=== PATIENT | female | born 1990 | race African-American/Black ===

== ENCOUNTER 2016-12-22 11:54 | Emergency (ER) | payer BC ==
[2016-12-22 12:45] LABS: Bilirubin Negative (Negative); Blood, Urine Negative (Negative); Glucose, Urine (Dipstick) Negative (Negative); Ketone, Urine Negative (Negative); Nitrite Negative (Negative); Protein, Urine (Dipstick) Negative (Neg-Trace)
[2016-12-22 12:48] LABS: Bacteria/HPF 1+ HPF (None Seen); Hyaline Casts/LPF 0-3 HYALINE CAST LPF (0-3 Hyaline); RBC/HPF 0-3 HPF (0-3)
== END 2016-12-22 13:30 | disposition home or self-care (01) ==
LOC: ERS 11:54
DX: R11.2 Nausea with vomiting, unspecified (principal)
CPT/HCPCS: 81003; 81015; 81025; 99284

== ENCOUNTER 2017-06-14 07:54 | Emergency (ER) | payer BC ==
[2017-06-14 08:49] LABS: Bilirubin Negative (Negative); Blood, Urine Negative (Negative); Clarity CLOUDY (Clear); Glucose, Urine (Dipstick) Negative (Negative); Leukocyte Small (Negative); Nitrite Positive (Negative); Protein, Urine (Dipstick) Negative (Neg-Trace)
[2017-06-14 08:56] LABS: Bacteria/HPF 1+ HPF (None Seen); Hyaline Casts/LPF 0-3 HYALINE CAST LPF (0-3 Hyaline); Pathc Cast-AUWi Flag 0.29 (0-2.49); RBC/HPF 0-3 HPF (0-3)
[2017-06-14 08:59] LABS: #Lymphocytes 1.5 thou/uL (1.20-3.40); #Monocytes 0.3 thou/uL (0.11-0.59); #Neutrophils 4.4 thou/uL (1.40-6.50); %Basophils 0.4 % (0.0-1.0); %Eosinophils 0.6 % (0.0-10.0); %Lymphocytes 24.1 % (21.0-51.0); %Neutrophils 69.9 % (42.0-75.0); Hemoglobin 11.5 g/dL (12.0-16.0); Mean Corpuscular HGB CONC 33.4 g/dL (32.0-36.0); Mean Corpuscular Hemoglobin 27.2 pg (27.0-31.0); Mean Corpuscular Volume 81.5 fl (81.0-99.0); Platelet Count 229 thou/uL (130-400); RBC Distribution Width 12.9 % (11.5-14.5); Red Blood Cell (RBC) Count 4.24 mill/uL (4.20-5.40); White Blood Cell (WBC) Count 6.2 thou/uL (4.8-10.8)
[2017-06-14 09:00] LABS: BHCG - Serum POSITIVE (NEGATIVE); Pregs Control Bar Appear? YES (CONTROL BAR)
[2017-06-14 09:01] LABS: Pregs Control Background? CLEAR/WHITE (CLR/WHITE)
[2017-06-14 09:17] LABS: ALT (SGPT) 12 U/L (8-55); AST (SGOT) 10 U/L (5-34); Albumin 3.5 g/dL (3.5-5.0); Alkaline Phosphatase 50 U/L (40-150); Anion Gap 11 mmol/L (10-20); BUN (Urea Nitrogen) 4 mg/dL (7.0-18.7); Bilirubin, Total 0.3 mg/dL (0.2-1.2); Calc. Creatinine Clearance 0 mL/min (70-130); Calcium 8.9 mg/dL (7.8-10.44); Carbon Dioxide 22 mmol/L (22-29); Chloride 106 mmol/L (98-107); Estimated GFR-MDRD Greater than 90; Globulin 2.8 g/dL (2.4-3.5); Glucose 77 mg/dL (70-105); Potassium 3.6 mmol/L (3.5-5.1); Protein, Total 6.3 g/dL (6.0-8.3); Sodium 135 mmol/L (136-145)
== END 2017-06-14 11:57 | disposition home or self-care (01) ==
LOC: ERS 07:54
DX: O23.42 Unspecified infection of urinary tract in pregnancy, second trimester (principal); Z3A.18 18 weeks gestation of pregnancy
CPT/HCPCS: 36415; 80053; 81003; 81015; 84702; 84703; 85025; 99284

== ENCOUNTER 2017-08-24 09:36 | Day surgery (SDC) | payer BC, OTHER ==
[2017-08-24 10:26] VITALS: BMI 39.9
[2017-08-24 10:34] VITALS: BP 118/61; TEMP 97.5
--- NOTE | 2017-08-24 11:53 | PRG ---
DATE OF SERVICE: 08/24/2017 PRIMARY DRAFTER (CAD) ELECTRONIC: [facility]. CHIEF COMPLAINT: Abdominal pain. HISTORY OF PRESENT ILLNESS: The patient is a 27-year-old G5, P3 female with an intrauterine pregnanc y at 28 weeks and 4 days, who is presenting to Labor and Delivery today from work with onset of sharp right lower abdominal pains. She reports that the pain has been present for about a day now and is much worse with movement and activity, getting out of bed. She works at [employer] on her feet for 8 hours and just was hurting too much to continue working. The patient denies uterine contractio ns. She denies vaginal bleeding. She denies urinary urgency or frequency. She denies any fall. Sh e denies headache, chest pain, shortness of breath, nausea, vomiting, diarrhea, constipation. She do es report that she has been itching in her lower abdomen. Denies vaginal bleeding, leakage of fluid, urinary urgency or frequency. PAST MEDICAL HISTORY: Anemia. PAST SURGICAL HISTORY: D and C. OBSTETRIC HISTORY: She has had 3 term deliveries and 1 missed first trimester loss miscarriage. ALLERGIES: No known drug allergies. MEDICATIONS: vitamins. OB LABS: Blood type is O positive, antibody screen is negative. HIV nonreactive in the first trimes ter. Hepatitis B surface antigen is negative. She is rubella immune. GC chlamydia were negative. REVIEW OF SYSTEMS: Per HPI. PHYSICAL EXAMINATION: VITAL SIGNS: Blood pressure 123/62, heart rate of 81, respiratory rate 16, satting 97%-98% on room a ir, temperature 97.5. GENERAL: She appears to be in no acute distress. She is alert and oriented, cooperative and pleasan t to interact with. HEENT: Normocephalic, atraumatic. CHEST: Clear to auscultation bilaterally. CARDIOVASCULAR: Heart has a regular rate and rhythm. ABDOMEN: Soft, nontender, gravid and obese. She does have an irregular bordered large macular lesio n filling most of underneath her pannus with irregular borders consistent with a fungal infection. T his is the site that she has itching. EXTREMITIES: Nontender, nonedematous. GENITOURINARY: Has been deferred. On abdominal exam, patient does have tenderness along her right i nguinal and abdominal region with deviation of the uterus to the left, reproducing the pain that she has been experiencing. heart tracing performed for abdominal pain baseline is noted to be in the 140s with moderate lo ng-term variability. There is a single variable deceleration early in the strip that spontaneously r ecovered with no reproduction before or after. The duration of the tracing is about 45 minutes. ASSESSMENT AND PLAN: The patient is a 27-year-old female with an intrauterine at 28 weeks with musculoskeletal pain consistent with round ligament pain. She also has a fungal infection under her pannus where things have been remaining moist. Fetus is reassuring for gestational age. The fabiano lockett has been given reassurance counseled to take two Tylenol 3 times a day and have recommended a b kaila band to the cyst while working for comfort. We have also counseled for her to get an ointment, cream or spray for jock itch or athlete's foot and to use as directed for the next 2 weeks to months on her skin in an efforts to eradicate this skin infection. The patient will continue to see the Sonya donis at [facility]. She believes her primary OB is Dr. Sánchez but is unsure.
== END 2017-08-24 11:30 | disposition home or self-care (01) ==
LOC: L&D/OP 09:36
PROVIDERS: ATTEND Obstetrics & Gynecology
DX: O99.89 Other specified diseases and conditions complicating pregnancy, childbirth and the puerperium (principal); R10.31 Right lower quadrant pain; O99.013 Anemia complicating pregnancy, third trimester; Z3A.28 28 weeks gestation of pregnancy
CPT/HCPCS: 59025; 99282

== ENCOUNTER 2018-03-12 08:18 | Emergency (ER) | payer BC, OTHER ==
[2018-03-12 08:57] LABS: Bilirubin Negative (Negative); Blood, Urine Negative (Negative); Clarity CLEAR (Clear); Glucose, Urine (Dipstick) Negative (Negative); Leukocyte Negative (Negative); Nitrite Negative (Negative); Protein, Urine (Dipstick) Negative (Neg-Trace); Specific Gravity, Urine 1.026 (1.002-1.036)
[2018-03-12 08:59] LABS: Pregnancy Test - Urine (BHCG) Negative (Negative); Pregu Control Background? CLEAR/WHITE (CLR/WHITE); Pregu Control Bar Appear? YES (CONTROL BAR); Specific Gravity 1.026 (1.002-1.036)
[2018-03-12 09:09] LABS: #Eosinphils 0.2 thou/uL (0.0-0.7); #Lymphocytes 1.9 thou/uL (1.20-3.40); #Monocytes 0.3 thou/uL (0.11-0.59); #Neutrophils 2.5 thou/uL (1.40-6.50); %Basophils 0.4 % (0.0-1.0); %Eosinophils 4.2 % (0.0-10.0); %Monocytes 5.9 % (0.0-10.0); %Neutrophils 50.7 % (42.0-75.0); Hemoglobin 13.1 g/dL (12.0-16.0); Mean Corpuscular HGB CONC 32.8 g/dL (32.0-36.0); Mean Corpuscular Hemoglobin 26.5 pg (27.0-31.0); Mean Corpuscular Volume 80.7 fL (78.0-98.0); Mean Platelet Volume 8.2 fL (7.4-10.4); Platelet Count 329 thou/uL (130-400); RBC Distribution Width 12.7 % (11.5-14.5); Red Blood Cell (RBC) Count 4.94 mill/uL (4.20-5.40); White Blood Cell (WBC) Count 4.9 thou/uL (4.8-10.8)
[2018-03-12 09:29] LABS: ALT (SGPT) 17 U/L (8-55); AST (SGOT) 15 U/L (5-34); Albumin 3.8 g/dL (3.5-5.0); Alkaline Phosphatase 92 U/L (40-150); Anion Gap 12 mmol/L (10-20); BUN (Urea Nitrogen) 11 mg/dL (7.0-18.7); Bilirubin, Total 0.3 mg/dL (0.2-1.2); Calc. Creatinine Clearance 0 mL/min (70-130); Calcium 8.8 mg/dL (7.8-10.44); Carbon Dioxide 22 mmol/L (22-29); Chloride 108 mmol/L (98-107); Estimated GFR-MDRD Greater than 90; Globulin 3.2 g/dL (2.4-3.5); Glucose 97 mg/dL (70-105); Lipase 16 U/L (8-78); Sodium 138 mmol/L (136-145)
== END 2018-03-12 09:36 | disposition home or self-care (01) ==
LOC: ERS 08:18
DX: R10.2 Pelvic and perineal pain (principal)
CPT/HCPCS: 36415; 80053; 81003; 81025; 83690; 85025; 94760

== ENCOUNTER 2019-08-19 19:22 | Emergency (ER) | payer SELFPAY ==
[2019-08-19 22:10] LABS: BHCG - Serum Negative (NEGATIVE); Pregs Control Background? CLEAR/WHITE (CLR/WHITE); Pregs Control Bar Appear? YES (CONTROL BAR)
== END 2019-08-19 23:40 | disposition home or self-care (01) ==
LOC: ERS 19:22
DX: R51 Headache (principal)
CPT/HCPCS: 36415; 84703; 96365; 96375